=== PATIENT | female | born 1935 | race Hispanic/Latino ===

== ENCOUNTER 2019-01-26 08:06 | Observation (INO) | payer OTHER ==
[2019-01-24 15:05] VITALS: BP 153/59
[2019-01-24 15:10] LABS: EOSINOPHILS % (AUTO) 4.3 % (0.0-8.0); HEMATOCRIT 33.9 % (36-48); LYMPHOCYTES % (AUTO) 28.7 % (21.0-51.0); MEAN CORPUSCULAR HEMOGLOBIN 28.5 pg (27.0-33.0); MEAN CORPUSCULAR HGB CONC 33.4 g/dL (32.0-36.0); MEAN CORPUSCULAR VOLUME 85.1 fL (79-99); MONOCYTES % (AUTO) 7.3 % (3.0-13.0); NEUTROPHILS % (AUTO) 57.7 % (40.0-77.0); PLATELET COUNT (AUTO) 339 K/uL (130-400); RED BLOOD CELL COUNT(AUTO) 3.98 MIL/uL (4.00-5.50); RED CELL DISTRIBUTION WIDTH 14.7 % (11.0-15.5); WHITE BLOOD COUNT (AUTO) 9.7 K/uL (4.8-10.8)
[2019-01-24 15:18] LABS: CREATININE 1.2 mg/dL (0.5-1.5); POTASSIUM 4.7 mmol/L (3.5-5.1)
[2019-01-24 15:22] LABS: INR 0.97 (0.85-1.15); PARTIAL THROMBOPLASTIN TIME 25.4 SEC (26.3-35.5); PROTHROMBIN TIME 10.2 SEC (9.6-11.6)
[2019-01-26] VITALS (10 sets, daily range): BP systolic 131–157; BP diastolic 50–69
[~2019-01-26] VITALS: Ht 149.9 cm; Wt 44.6 kg
[~2019-01-26 08:06] MED LIST: CEFAZOLIN SODIUM 1 GM VIAL IVP ONE; FENO145T37 PO; FURO20TA4 PO; GARL1000 PO; INSU100I24 SQ; LISI-613 PO; METF-444 PO; METO-408 PO; MULT-1296 PO; RIVA15TA PO; SIMV20TA6 PO; TURM500C9 PO; VITAMIN B12 PO
--- NOTE | 2019-01-26 08:50 | NUR ---
PRE-PROCEDURE RECEIVED FROM HOME VIA AMBULATING FOR SCHEDULED DUAL ICD INSERTION TO DAY 7. AWAKE IN NO ACUTE DISTRESS. DENIES PAIN. CONNECTED TO CONTINUOUS CARDIOPULMONARY MONITORING. SIDE RAILS UP X2, BED IN LOWEST POSITION, AND CALL LIGHT W/IN REACH.
--- NOTE | 2019-01-26 09:16 | NUR ---
POST-PROCEDURE RECEIVED FROM [employer] VIA BED S/P RT AND C VIA BED BY WILLIAM GOINS RN. AWAKE IN NO ACUTE DISTRESS. CONNECTED TO CONTINUOUS CARDIOPULMONARY MONITORING. CATH SITE W/O SIGNS OF BLEEDING, DSTAT CLEAN, DRY, AND INTACT;SITE SOFT, NON-TENDER. SIDE RAILS UP X2, BED IN LOWEST POSITION, AND CALL LIGHT W/IN REACH. INSTRUCTED PT ON IMPORTANCE OF KEEPING RIGHT LEG STRAIGHT AND HEAD FLAT. PT VERBALIZED UNDERSTANDING. Addendum: 01/26/19 at 1022 by POPPY RUCKER RN RN WRONG PATIENT
[2019-01-26] MEDS ORDERED: SODIUM CHLORIDE 0.9% 1000ML 1,000 ML IV ONE (09:42)
[2019-01-26] MEDS ORDERED: BUPIVACAINE/PF 0.25% 30ML VIAL IJ ONE (10:12)
[2019-01-26] MEDS ORDERED: MEPERIDINE-PF 25 MG/ML SYG ONE (10:12)
[2019-01-26] MEDS ORDERED: CEFAZOLIN SODIUM 1 GM VIAL ONE (10:12)
[2019-01-26] MEDS ORDERED: MIDAZOLAM HCL 1 MG/ML 2ML VIAL ONE (10:12)
[2019-01-26] MEDS ORDERED: LIDOCAINE HCL 1% MDV 50ML VIAL ONE (10:12)
--- NOTE | 2019-01-26 10:23 | NUR ---
PROCEDURE TRANSFERRED TO [facility] BY WILLIAM GOINS RN VIA BED FOR DUAL ICD INSERTION. AWAKE IN NO ACUTE DISTRESS.
[2019-01-26] MEDS ORDERED: ACETAMINOPHEN-CODEINE 300/30MG TAB PO PRN (12:30)
--- NOTE | 2019-01-26 12:50 | NUR ---
ASSESSMENT RECEIVED PT FROM [facility] SAMUEL ROSS. PT SITTING UP IN BED. SLING IN PLACE TO LEFT ARM SITE TO LEFT UPPER CHEST DRY AND INTACT. SOFT TO TOUCH. NO BLEEDING, OOZING. WHEN ASKED PT HOW SHE FELT, PT SLOW TO RESPOND. ASKED TO SMILE. LEFT SIDE OF MOUTH DROOPING. NOT EQUAL. SON STATES PT HAD OLD STROKE, HAS SOME SLIGHT DROOPING TO LEFT SIDE OF MOUTH , BUT THIS IS MORE NOTICEABLE. DR. TOLENTINO HERE AT BEDSIDE. EVALUATED PT. ORDERS RECEIVED TO DO A CT OF HEAD WITHOUT CONTRAST AND CONSULT DR. SHARMA FOR POSSIBLE STROKE.
--- NOTE | 2019-01-26 13:10 | NUR ---
ORDERS PT TRANSFERRED TO RADIOLOGY VIA BED BY EMILY FOR CT BRAIN W/O CONTRAST. AWAKE BUT DROWSY IN NO ACUTE DISTRESS.
--- NOTE | 2019-01-26 13:20 | NUR ---
POST CT RETURN FROM RADIOLOGY VIA BED BY EMILY. RECONNECTED TO CONTINUOUS CARDIOPULMONARY MONITORING.
--- NOTE | 2019-01-26 13:47 | NUR ---
CONSULT SPOKE TO DR. SHARMA UPDATED ON PTS STATUS AND CT RESULTS. ORDERS RECEIVED TO DO CT ANGIOGRAM HEAD AND NECK TO R/O LARGE VESSEL OCC. FAMILY UPDATED.
--- NOTE | 2019-01-26 13:53 | NUR ---
CONSULT DR. OWENS NOTIFIED OF CONSULT. NO NEW ORDERS RECEIVED.
--- NOTE | 2019-01-26 14:09 | NUR ---
ORDERS TRANSFERRED TO RADIOLOGY FOR CT ANGIO HEAD AND NECK VIA BED BY EMILY. AWAKE IN NO ACUTE DISTRESS.
[2019-01-26] MEDS ORDERED: IOHEXOL-350 75 ML VIAL IV ONE (14:16)
--- NOTE | 2019-01-26 14:33 | NUR ---
POST CT ANGIO RECEIVED BACK FROM RADIOLOGY VIA BED. CT ANGIO COMPLETED W/O COMPLICATIONS. RECONNECTED TO CONTINUOUS CARDIOPULMONARY MONITORING.
--- NOTE | 2019-01-26 14:38 | NUR ---
REPORT REPORT CALLED TO SAMUEL LUGO USING SBAR/VERBALIZED UNDERSTANDING.
--- NOTE | 2019-01-26 14:42 | NUR ---
TRANSFER TRANSFERRED TO ROOM 226 VIA BED. AWAKE IN NO ACUTE DISTRESS. BEDSIDE REPORT COMPLETED.
[2019-01-26] MEDS ORDERED: METFORMIN HCL 500 MG TABLET PO SCH (17:00)
[2019-01-26] MEDS: METOPROLOL TARTRATE 25 MG TAB PO SCH (20:12)
--- NOTE | 2019-01-26 20:20 | NUR ---
md call DR SHARMA CALLED TO CHECK ON PATIENT AND SEE IF DR TOLENTINO CALLED BACK. I TOLD HIM NO DR TOLENTINO HAS NOT RETURNED OUR CALL. DR SHARMA STATE TO CONSULT CARDIO RECOVERY ROOM RN TO SHE IF IT WAS SAFE TO GIVE PATIENT ASA AND PLAVIX FOR CAROTID STENOSIS SO SOON AFTER HER DUAL ICD PLACEMENT.
--- NOTE | 2019-01-26 20:30 | NUR ---
ROUND Li TAPIA CAME TO SEE PATIENT AND I TOLD HIM WHAT DR SHARMA SUGGESTED HE EVALUATED PATIENT AND THE SWELLING TO HER ICD SITE AND STATED TO START ASA IN AM AND CALL CARDIO ABOUT THE PLAVIX.
--- NOTE | 2019-01-26 20:45 | NUR ---
MD THERESE LAWRENCEU CALLED AND INFORMED HIM OF PATIENT CONDITION AND WHAT DR SHARMA HAD SUGGESTED. I ASLO TOLD HIM OF THE SWELLING TO THE ICD SITE TO LEFT CHEST WALL. HE STATED HAT WAS NORMAL AND THAT WE COULD START PATIENT ON ASA AND PLAVIX SAFELY BUT TO PLEASE ADVICE DR TOLENTINO OF THIS IN AM.
[2019-01-26] MEDS ORDERED: FENOFIBRATE NANOCRYSTALLIZED 145 MG TAB PO SCH (21:00)
[2019-01-26] MEDS ORDERED: LISINOPRIL 20 MG TABLET PO SCH (21:00)
[2019-01-26] MEDS ORDERED: SIMVASTATIN 20 MG TABLET PO SCH (21:00)
[2019-01-27] VITALS: BP 97/46
[2019-01-27 04:38] LABS: BASOPHILS % (AUTO) 0.9 % (0.0-5.0); EOSINOPHILS % (AUTO) 0.5 % (0.0-8.0); HEMATOCRIT 29.4 % (36-48); LYMPHOCYTES % (AUTO) 16.6 % (21.0-51.0); MEAN CORPUSCULAR HEMOGLOBIN 28.9 pg (27.0-33.0); MEAN CORPUSCULAR HGB CONC 34.2 g/dL (32.0-36.0); MEAN CORPUSCULAR VOLUME 84.4 fL (79-99); MONOCYTES % (AUTO) 7.3 % (3.0-13.0); NEUTROPHILS % (AUTO) 74.7 % (40.0-77.0); PLATELET COUNT (AUTO) 270 K/uL (130-400); RED BLOOD CELL COUNT(AUTO) 3.48 MIL/uL (4.00-5.50); RED CELL DISTRIBUTION WIDTH 14.3 % (11.0-15.5); WHITE BLOOD COUNT (AUTO) 10.6 K/uL (4.8-10.8)
[2019-01-27 04:51] LABS: CREATININE 1.6 mg/dL (0.5-1.5); POTASSIUM 3.4 mmol/L (3.5-5.1)
[2019-01-27 04:54] VITALS: BP 99/46
[2019-01-27] MEDS: INSULIN HUMULIN R 100 UNIT/ML 3ML SQ SCH ×2 (06:50→11:30)
[2019-01-27] MEDS ORDERED: TRESIBA U SQ SCH (07:30)
[2019-01-27 08:00] VITALS: BP 115/54
[2019-01-27] MEDS ORDERED: ASPIRIN 325MG EC TAB 325 MG TABLET.DR PO SCH (09:00)
[2019-01-27] MEDS ORDERED: FUROSEMIDE 20 MG TABLET PO SCH (09:00)
[2019-01-27] MEDS ORDERED: CLOPIDOGREL BISULFATE 75 MG TAB PO SCH (09:00)
[2019-01-27] MEDS ORDERED: ASPIRIN 81 MG EC TAB PO SCH (09:15)
[2019-01-27] MEDS: METOPROLOL TARTRATE 25 MG TAB PO SCH (09:34)
[2019-01-27] MEDS ORDERED: AEC81 PO (10:01)
[2019-01-27 11:00] VITALS: BP 111/48
== END 2019-01-27 14:44 | disposition home or self-care (01) ==
LOC: DAH 08:06 → DAHIP 08:07 → 2DH 14:48
PROVIDERS: ADMIT Internal Medicine; ATTEND Internal Medicine
DX: I25.10 Atherosclerotic heart disease of native coronary artery without angina pectoris (principal); I11.0 Hypertensive heart disease with heart failure; I50.9 Heart failure, unspecified; E11.9 Type 2 diabetes mellitus without complications; E03.9 Hypothyroidism, unspecified; E78.5 Hyperlipidemia, unspecified; I48.0 Paroxysmal atrial fibrillation; G51.0 Bell's palsy; I65.22 Occlusion and stenosis of left carotid artery; Z86.73 Personal history of transient ischemic attack (TIA), and cerebral infarction without residual deficits; Z88.8 Allergy status to other drugs, medicaments and biological substances; Z91.018 Allergy to other foods
CPT/HCPCS: 33249; 36415 ×2; 70450; 70496; 70498; 71045; 80048 ×2; 82948 ×6; 85025 ×2; 85610; 85730; 93005; A4215; A4216; A4221; A4222; A4223 ×3; A4606; A4663; C1721; C1895 ×2; G0378 ×27; J0690; J2175; J2250; J3490 ×2; J7030; Q9967; 96374; 99156; 99157